=== PATIENT | female | born 1965 | race Caucasian/White ===

== ENCOUNTER 2019-03-11 12:44 | Emergency (ER) | payer OTHER ==
[2019-03-11 12:58] VITALS: BP 127/53; PULSE 64; TEMP 98; BMI 35.4
--- NOTE | 2019-03-11 13:26 | PDOC ---
History of Present Illness - General Chief Complaint: Cold Symptoms Stated Complaint: cold symptoms Time Seen by Provider: 03/11/19 13:14 History Source: Patient Exam Limitations: Clinical Condition - History of Present Illness Initial Comments: 03/11/19 13:43 Patient with a history of multiple comorbidities, cardiac stents and asthma presented with complaint of one-week history of persistent cough with yellow sputum, chills and intermittent wheezing. Denies no wheezing today. Denies fever, recent travel. Reported boyfriend at home with same symptoms. Patient did not take anything for symptoms. Patient reported had pneumonia 9 months ago and had to be admitted. Denies any other symptoms Is this a multiple visit Asthma Patient?: No Timing/Duration: 1 week Past History - Past Medical History Allergies/Adverse Reactions: Allergies Allergy/AdvReac Type Severity Reaction Status Date / Time verapamil Allergy Severe angioedema Verified 03/11/19 13:00 Home Medications: Ambulatory Orders Amlodipine Besylate [Norvasc -] 5 mg PO DAILY 07/04/12 Aspirin [ASA -] 81 mg PO DAILY 07/04/12 Enalapril Maleate [Vasotec -] 10 mg PO DAILY 07/04/12 Albuterol 0.083% Nebulizer Violet [Ventolin 0.083% Nebulizer Soln -] 1 neb NEB Q4H PRN #60 vial 07/10/14 Atorvastatin Ca [Lipitor -] 20 mg PO HS 07/10/14 Montelukast Na [Singulair -] 10 mg PO HS 07/10/14 Omeprazole [Prilosec] 40 mg PO DAILY 07/10/14 Famotidine [Pepcid -] 40 mg PO BID #14 tablet 10/09/15 Sucralfate [Carafate] 1 gm PO TID PRN #20 ml MDD 2 10/09/15 Azithromycin [Zithromax 250mg Tablets -] 250 mg PO UTDICT #6 tab 03/11/19 Benzonatate [Tessalon Pearls -] 100 mg PO Q8H PRN #21 capsule 03/11/19 Ipratropium [place] 2 spray NS BID PRN #1 spray 03/11/19 Methylprednisolone [Medrol Dose Uzair] 4 mg PO ASDIR #21 tablet 03/11/19 Asthma: Yes Cardiac Disorders: Yes (Aortic Aneurysm repair x 11/2018) COPD: Yes GI Disorders: Yes (gerd, hernia) HTN: Yes Hypercholesterolemia: Yes - Reproductive History (#): 11 Para: 7 Ectopic : Yes - Immunization History Td Vaccination: Yes Immunization Up to Date: Yes - Psycho Social/Smoking Cessation Hx Smoking Status: Yes Smoking History: Unknown if ever smoked Years of Tobacco Use: 0 Have you smoked in the past 12 months: No Number of Cigarettes Smoked Daily: 3 Cigars Per Day: 3 Information on smoking cessation initiated: No Hx Alcohol Use: No Drug/Substance Use Hx: No Substance Use Type: None Review of Systems - Review of Systems Able to Perform ROS?: Yes Is the patient limited Sami proficient: No Constitutional: No: Chills, Fever, Loss of Appetite HEENTM: Yes: Symptoms Reported, See HPI, Nose Congestion. No: Eye Pain, Blurred Vision, Tearing, Recent change in vision, Double Vision, Cataracts, Ear Pain, Ocular Prothesis, Ear Discharge, Nose Pain, Tinnitus, Nose Bleeding, Hearing Loss, Throat Pain, Throat Swelling, Mouth Pain, Dental Problems, Difficulty Swallowing, Mouth Swelling, Other Respiratory: Yes: Symptoms reported, See HPI, Cough, Productive cough (yellow sputum). No: Orthopnea, Shortness of Breath, SOB with Exertion, SOB at Rest, Stridor, Wheezing, Hemoptysis, Other Cardiac (ROS): No: Symptoms Reported, See HPI, Chest Pain, Edema, Irregular Heart Rate, Lightheadedness, Palpitations, Syncope, Chest Tightness, Other ABD/GI: No: Symptoms Reported, Nausea, Vomiting Musculoskeletal: No: Symptoms Reported Integumentary: No: Symptoms Reported Neurological: No: Symptoms reported All Other Systems: Reviewed and Negative *Physical Exam - Vital Signs Last Vital Signs Temp Pulse Resp BP Pulse Ox 98.0 F 64 16 127/53 L 97 03/11/19 12:54 03/11/19 12:54 03/11/19 12:54 03/11/19 12:54 03/11/19 12:54 - Physical Exam 03/11/19 13:24 GENERAL: Well developed, well nourished. Awake and alert. No acute distress. HEENT: b/l nasal congestion. Normocephalic, atraumatic. PERRLA, EOMI. No conjunctival pallor. Sclera are non-icteric. Moist mucous membranes. Oropharynx is clear. NECK: Supple. Full ROM. CARDIOVASCULAR: Regular rate and rhythm. No murmurs, rubs, or gallops. Distal pulses are 2+ and symmetric. PULMONARY: No evidence of respiratory distress. Lungs clear to auscultation bilaterally. No wheezing, rales or rhonchi. ABDOMINAL: Soft. Non-tender. Non-distended. No rebound or guarding. No organomegaly. Normoactive bowel sounds. MUSCULOSKELETAL Normal range of motion at all joints. SKIN: Warm and dry. Normal capillary refill. No rashes. No cyanosis. NEUROLOGICAL: Alert, awake, appropriate. Gait is normal without ataxia. PSYCHIATRIC: Cooperative. Good eye contact. Appropriate mood General Appearance: Yes: Nourished, Appropriately Dressed. No: Apparent Distress ED Treatment Course - RADIOLOGY Radiology Studies Ordered: Category Date Time Status CHEST PA & LAT [RAD] Stat Radiology 03/11/19 13:21 Ordered Medical Decision Making - Medical Decision Making 03/11/19 13:44 Patient with a history of multiple comorbidities, cardiac stents and asthma presented with complaint of one-week history of persistent cough with yellow sputum, chills and intermittent wheezing. Denies no wheezing today. Denies fever, recent travel. Reported boyfriend at home with same symptoms. Patient did not take anything for symptoms. Patient reported had pneumonia 9 months ago and had to be admitted. Denies any other symptoms Exam significant for patient coughing throughout exam in no acute respiratory distress. Lungs clear to auscultation bilateral. Patient afebrile. Symptoms likely viral URI versus less likely pneumonia. Chest x-ray shows no acute infiltrate. Patient stable for outpatient management for URI on Medrol Uzair and Tessalon Perles as needed for cough and Atrovent nasal spray for nasal congestion with advised to increase fluid intake and follow-up with PCP or pulmonology Discharge - Discharge Information Problems reviewed: Yes Clinical Impression/Diagnosis: Cough in adult patient, Nasal congestion URI (upper respiratory infection) Qualifiers: URI type: unspecified URI Qualified Code(s): J06.9 - Acute upper respiratory infection, unspecified Condition: Stable Disposition: HOME - Admission No - Additional Discharge Information Prescriptions: Azithromycin [Zithromax 250mg Tablets -] 250 mg PO UTDICT #6 tab Benzonatate [Tessalon Pearls -] 100 mg PO Q8H PRN #21 capsule PRN Reason: Cough Ipratropium [place] 2 spray NS BID PRN #1 spray PRN Reason: nasal congestion Methylprednisolone [Medrol Dose Uzair] 4 mg PO ASDIR #21 tablet - Follow up/Referral Referrals: Jb Bustillo MD [Staff Physician] - - Patient Discharge Instructions Additional Instructions: Chest x-ray shows no pneumonia. Take prescribed medication as prescribed for cough and upper respiratory infection. Increase fluid intake. Follow-up with primary care - Post Discharge Activity
== END 2019-03-11 13:50 | disposition home or self-care (01) ==
LOC: JER 12:44
DX: J06.9 Acute upper respiratory infection, unspecified (principal); R05 Cough; R09.81 Nasal congestion; Z88.8 Allergy status to other drugs, medicaments and biological substances; Z95.5 Presence of coronary angioplasty implant and graft; J45.909 Unspecified asthma, uncomplicated; K21.9 Gastro-esophageal reflux disease without esophagitis; I10 Essential (primary) hypertension; E78.00 Pure hypercholesterolemia, unspecified; I71.4 Abdominal aortic aneurysm, without rupture
CPT/HCPCS: 71046-TC-FY; 99281-25

== ENCOUNTER 2019-12-17 11:29 | Emergency (ER) | payer OTHER ==
[2019-12-17 11:44] VITALS: BP 153/73; PULSE 73; TEMP 98.4; BMI 35.5
[2019-12-17] MEDS ORDERED: ACETAMINOPHEN 325 MG TABLET (FP) PO ONE (12:05)
--- NOTE | 2019-12-17 12:09 | PDOC ---
History of Present Illness - General Chief Complaint: Ear Problem Stated Complaint: RT.EAR PAIN Time Seen by Provider: 12/17/19 12:01 History Source: Patient (R ear and sorethroat X 3 days) Exam Limitations: No Limitations - History of Present Illness Is this a multiple visit Asthma Patient?: No Associated Symptoms: denies: cough, diaphoresis, fever/chills, headaches, loss of appetite, nausea/vomiting, rash, seizure, shortness of breath, weakness Past History - Travel History Traveled outside of the country in the last 30 days: No Close contact w/someone who was outside of country & ill: No - Medical History Allergies/Adverse Reactions: Allergies Allergy/AdvReac Type Severity Reaction Status Date / Time verapamil Allergy Severe angioedema Verified 12/17/19 11:43 Home Medications: Ambulatory Orders Amlodipine Besylate [Norvasc -] 5 mg PO DAILY 07/04/12 Aspirin [ASA -] 81 mg PO DAILY 07/04/12 Enalapril Maleate [Vasotec -] 10 mg PO DAILY 07/04/12 Albuterol 0.083% Nebulizer Violet [Ventolin 0.083% Nebulizer Soln -] 1 neb NEB Q4H PRN #60 vial 07/10/14 Atorvastatin Ca [Lipitor -] 20 mg PO HS 07/10/14 Montelukast Na [Singulair -] 10 mg PO HS 07/10/14 Omeprazole [Prilosec] 40 mg PO DAILY 07/10/14 Famotidine [Pepcid -] 40 mg PO BID #14 tablet 10/09/15 Sucralfate [Carafate] 1 gm PO TID PRN #20 ml MDD 2 10/09/15 Azithromycin [Zithromax 250mg Tablets -] 250 mg PO UTDICT #6 tab 03/11/19 Benzonatate [Tessalon Pearls -] 100 mg PO Q8H PRN #21 capsule 03/11/19 Ipratropium [place] 2 spray NS BID PRN #1 spray 03/11/19 Methylprednisolone [Medrol Dose Uzair] 4 mg PO ASDIR #21 tablet 03/11/19 Asthma: Yes Cardiac Disorders: Yes (Aortic Aneurysm repair x 11/2018) COPD: Yes GI Disorders: Yes (gerd, hernia) HTN: Yes Hypercholesterolemia: Yes Other medical history: stent - Reproductive History Is Patient Now?: No (#): 11 Para: 7 Ectopic : Yes - Immunization History Td Vaccination: Yes Immunization Up to Date: Yes - Psycho-Social/Smoking History Smoking Status: Yes Smoking History: Former smoker Years of Tobacco Use: 0 Have you smoked in the past 12 months: No Number of Cigarettes Smoked Daily: 3 If you are a former smoker, when did you quit?: 2018 Cigars Per Day: 3 Information on smoking cessation initiated: No - Substance Abuse Hx (Audit-C & DAST Scrn) How often the patient has a drink containing alcohol: Never Score: In Men: 4 or > Positive; In Women: 3 or > Positive: 0 Screen Result (Pos requires Nsg. Audit-10AR): Negative Review of Systems - Review of Systems Constitutional: No: Chills, Fever HEENTM: Yes: Ear Pain, Throat Pain. No: Blurred Vision, Tearing, Cataracts, Nose Congestion, Hearing Loss, Throat Swelling, Difficulty Swallowing, Mouth Swelling Respiratory: No: Cough, Shortness of Breath, Productive cough *Physical Exam - Vital Signs Last Vital Signs Temp Pulse Resp BP Pulse Ox 98.4 F 73 18 153/73 97 12/17/19 11:39 12/17/19 11:39 12/17/19 11:39 12/17/19 11:39 12/17/19 11:39 - Physical Exam General Appearance: Yes: Nourished HEENT: positive: EOMI, DAVID, TMs Normal, Tonsillar Erythema, Hearing Grossly Normal. negative: Pharyngeal Erythema, Tonsillar Exudate, Nasal Congestion, Excessive drooling Respiratory/Chest: positive: Lungs Clear, Normal Breath Sounds Cardiovascular: positive: Regular Rate, S1, S2 Lymphatic: positive: Adenopathy, Tenderness (right submandibular/cervical lymph node tender) Neurologic: positive: fleecer II-XII NML intact, Fully Oriented, Alert, Normal Mood/Affect, Normal Response, Motor Strength 5/5 Medical Decision Making - Medical Decision Making 12/17/19 12:12 54 years old female with right ear discomfort and sore throat for 3 days. Patient denies cough, fever, chills or any recent travel. Vital signs are stable On examination there is erythematous oropharynx noted. Patient does have submandibular lymph nodes on the right that is tender. Bilateral ear tympanic membrane was clear with no infection. Rapid strep sent and is pending Tylenol given. Strep was negative 12/17/19 13:17 Discharge - Discharge Information Problems reviewed: Yes Clinical Impression/Diagnosis: Otalgia of right ear, Sorethroat Condition: Stable Disposition: HOME - Admission No - Additional Discharge Information Prescription Drug Monitoring Program (I-STOP) results: I-STOP not reviewed - Follow up/Referral - Patient Discharge Instructions Patient Printed Discharge Instructions: Sore Throat, DI for Ear Pain-Adult Additional Instructions: Your strep test was negative today. A culture will be sent out if is positive you will be notified and antibiotic will be sent to the pharmacy. There was no ear infection seen today. You may take Tylenol for pain. You may gargle with salt warm water for your throat. Return to the emergency room if worsening symptoms occurs. - Post Discharge Activity
[2019-12-17] MEDS ORDERED: ACETAMINOPHEN 325 MG TABLET (FP) ONE (12:20)
== END 2019-12-17 13:21 | disposition home or self-care (01) ==
LOC: JERFT 11:29
DX: H92.01 Otalgia, right ear (principal); J02.9 Acute pharyngitis, unspecified
CPT/HCPCS: 87070; 87880; 99283-25

== ENCOUNTER 2020-04-27 22:30 | Emergency (ER) | payer OTHER ==
[2020-04-27 22:36] VITALS: BMI 35.2
[2020-04-27] MEDS ORDERED: ACETAMINOPHEN 325 MG TABLET (FP) PO ONE (23:35)
[2020-04-28] MEDS ORDERED: ACETAMINOPHEN 325 MG TABLET (FP) ONE (00:57)
[2020-04-28 01:41] VITALS: BP 156/84; PULSE 67; TEMP 98.6
== END 2020-04-28 01:36 | disposition home or self-care (01) ==
LOC: JER 22:30
DX: M79.671 Pain in right foot (principal)
CPT/HCPCS: 73630-TC-RT-FY; 99283-25

== ENCOUNTER 2020-04-28 10:20 | Emergency (ER) | payer OTHER ==
[2020-04-28 10:29] VITALS: BP 204/61; PULSE 72; TEMP 98; BMI 35.2
== END 2020-04-28 11:23 | disposition home or self-care (01) ==
LOC: JERFT 10:20
DX: S92.911A Unspecified fracture of right toe(s), initial encounter for closed fracture (principal)
CPT/HCPCS: 99283-25